=== PATIENT | female | born 1990 | race Caucasian/White ===

== ENCOUNTER → 2021-06-30 | Outpatient (CLI) | payer OTHER ==
[~2021-06-30] MED LIST: CATHETER FLUSH 10 ML SYR IV PRN; HOLD METFORMIN - RECEIVED CONTRAST 20 ML VIAL IV SCH; IOHEXOL 350 MG/ML 100 ML (OMNIPAQUE 350) VIAL IV ONE; NS 100 ML (IVPB) BAG IV ONE
--- NOTE | 2021-06-30 18:14 | Diagnostic Imaging Report ---
PROCEDURE: CT neck soft tissue with contrast. TECHNIQUE: Multiple contiguous axial images were obtained through the neck after the administration of contrast. Auto Exposure Controls were utilized during the CT exam to meet ALARA standards for radiation dose reduction. INDICATION: Globus sensation. COMPARISON: No prior studies are available for comparison. FINDINGS: Visualized intracranial structures are unremarkable. Posterior nasopharynx and oropharynx are unremarkable. Parapharyngeal fat planes are preserved. Epiglottis and larynx are unremarkable. A small nodule along the posterior margin of the right lower pole of the thyroid is again noted and described on ultrasound. Normal-sized lymph nodes in the posterior cervical and jugulodigastric regions are noted. Submandibular and parotid glands appear to be symmetric. No fluid collection or mass is seen. IMPRESSION: Unremarkable CT soft tissue neck study. Dictated by: Dictated on workstation # [id number]
--- NOTE | 2021-06-30 18:18 | Diagnostic Imaging Report ---
PROCEDURE: US Thyroid. TECHNIQUE: Multiple real-time grayscale images were obtained of the thyroid in various projections. INDICATION: Right thyroid nodule, follow-up. CORRELATION is made with outside ultrasound of the thyroid from [facility] from 09/10/2020. Right lobe of the thyroid measures 5.2 x 2.0 x 1.3 cm. The left lobe measures 4.1 x 1.4 x 1.5 cm. Isthmus is 4 mm in thickness. Both lobes are fairly homogeneous in echotexture. There is a hypoechoic nodule along the posterior margin of the lower pole of the right lobe. This may be extrathyroidal and perhaps parathyroid tissue. The nodule appears to be similar in size to outside exam. Parathyroid adenoma cannot be excluded. Previously noted colloid cysts are no longer visualized. IMPRESSION: Hypoechoic solid nodule along the posterior margin of the lower pole right lobe of the thyroid. It is uncertain if this is a true thyroid nodule versus extrathyroidal and perhaps parathyroid in origin. This appears similar to outside study from [facility]. If there is concern for parathyroid adenoma, nuclear medicine parathyroid scan could be performed. Dictated by: Dictated on workstation # [id number]
== END ==
LOC: RAD 07:45
PROVIDERS: ATTEND Otolaryngology Otolaryngology/Facial Plastic Surgery
DX: E04.1 Nontoxic single thyroid nodule (principal); F45.8 Other somatoform disorders
CPT/HCPCS: 70491; 76536

== ENCOUNTER → 2021-07-03 | Outpatient (CLI) | payer OTHER ==
[2021-07-03 11:49] LABS: CALCIUM 9.5 MG/DL (8.5-10.1)
[2021-07-03 12:16] LABS: FREE T4 (FREE THYROXINE) 0.91 NG/DL (0.70-1.48)
== END ==
LOC: LAB 11:09
PROVIDERS: ATTEND Otolaryngology Otolaryngology/Facial Plastic Surgery
DX: E04.1 Nontoxic single thyroid nodule (principal)
CPT/HCPCS: 36415; 82310; 83970; 84439; 84443

== ENCOUNTER → 2021-10-28 | Outpatient (CLI) | payer OTHER | LOC: LABNPT 08:28 | PROVIDERS: ATTEND Internal Medicine Cardiovascular Disease | DX: Z20.822 Contact with and (suspected) exposure to COVID-19 (principal) | CPT/HCPCS: 87636 ==

== ENCOUNTER → 2022-07-05 | Outpatient (CLI) | payer OTHER ==
--- NOTE | 2022-07-05 15:41 | Diagnostic Imaging Report ---
PROCEDURE: US Thyroid. TECHNIQUE: Multiple Real-time grayscale images were obtained of the thyroid in various projections. INDICATION: Enlarged thyroid. FINDINGS: The right lobe measures 5.4 x 1.6 x 1.3 cm. The left lobe measures 4.3 x 1 x 1.3 cm. There is a heterogeneous slightly hypoechoic nodule along the very inferior portion of the right lobe measuring 1.1 x 0.8 cm. There is mild hypervascularity noted of the thyroid. IMPRESSION: Mild thyromegaly. Solid nodule inferiorly in the right lobe is considered mildly suspicious. TI-RADS 3. Sonographic surveillance is recommended. Dictated by: Dictated on workstation # [id number]
== END ==
LOC: RAD 13:46
PROVIDERS: ATTEND Otolaryngology Otolaryngology/Facial Plastic Surgery
DX: E04.1 Nontoxic single thyroid nodule (principal)
CPT/HCPCS: 76536

== ENCOUNTER 2022-11-09 05:38 | Outpatient (CLI) | payer OTHER ==
[~2022-11-09] VITALS: Ht 160 cm; Wt 63.5 kg
[2022-11-10] MEDS ORDERED: SUCR1TAB PO (14:04)
== END 2022-11-10 14:48 ==
LOC: PREOP 05:38
PROVIDERS: ATTEND Surgery
DX: Z01.818 Encounter for other preprocedural examination (principal); R13.10 Dysphagia, unspecified

== ENCOUNTER 2022-11-16 12:34 | Day surgery (SDC) | payer OTHER ==
[~2022-11-16] VITALS: Ht 160 cm; Wt 63.5 kg
[~2022-11-16 12:34] MED LIST changes: -CATHETER FLUSH 10 ML SYR IV PRN; -HOLD METFORMIN - RECEIVED CONTRAST 20 ML VIAL IV SCH; -IOHEXOL 350 MG/ML 100 ML (OMNIPAQUE 350) VIAL IV ONE; -NS 100 ML (IVPB) BAG IV ONE; +SUCR1TAB PO
[2022-11-16] MEDS ORDERED: LACTATED RINGERS 1,000 ML IV STA (12:50)
[2022-11-16 13:00] VITALS: BP 118/73
[2022-11-16] MEDS ORDERED: HURRICAINE EXT TUBE (BENZOCAINE) XX PRN (13:00)
[2022-11-16] MEDS ORDERED: MIDAZOLAM 2 MG/2 ML (VERSED) VIAL ONE (13:57)
[2022-11-16] MEDS ORDERED: PROPOFOL INJECTION 50 ML IV ONE (13:57)
[2022-11-16] MEDS ORDERED: HURRICAINE EXT TUBE (BENZOCAINE) ONE (13:59)
[2022-11-16] MEDS ORDERED: LACTATED RINGERS 1,000 ML IV ONE (13:59)
--- NOTE | 2022-11-16 14:17 | Discharge Inst-Simple/Standard ---
Discharge Inst-Standard Patient Instructions/Follow Up Plan of Care/Instructions/FU: Please follow-up in 2 weeks at the outpatient clinic with Dr. Shirley Activity as Tolerated: Yes Discharge Diet: Regular Diet RICCARDO SHIRLEY DO Nov 16, 2022 14:17
[2022-11-16 14:20] VITALS: BP 108/56
[2022-11-16 14:25] VITALS: BP 108/62
--- NOTE | 2022-11-16 14:36 | Anesthesia-General Post-Op ---
MAC Patient Condition Mental Status/LOC: Same as Preop Cardiovascular: Satisfactory Nausea/Vomiting: Absent Respiratory: Satisfactory Pain: Controlled Complications: Absent Post Op Complications Complications None Follow Up Care/Instructions Patient Instructions None needed. Anesthesiology Discharge Order Discharge Order Patient is doing well, no complaints, stable vital signs, no apparent adverse anesthesia problems. No complications reported per nursing. MARTINE LUCAS CRNA Nov 16, 2022 14:36
[2022-11-16 14:40] VITALS: BP 116/76
[2022-11-16 14:50] VITALS: BP 116/76
--- NOTE | 2022-11-17 01:36 | OPERATIVE REPORT ---
DATE OF SERVICE: 11/16/2022 PREOPERATIVE DIAGNOSIS: Dysphagia. POSTOPERATIVE DIAGNOSIS: Normal EGD. SURGEON: Riccardo Shirley DO ANESTHESIA: Per FLEXOGRAPHIC PRESS HELPER. ESTIMATED BLOOD LOSS: None. COMPLICATIONS: None. : EGD with biopsies. DESCRIPTION OF PROCEDURE: The patient was taken to the endoscopy suite, placed in the left lateral recumbent position. Timeout was performed. Scope was inserted in the mouth, down the esophagus, stomach and duodenum without difficulty. No polyps, masses or ulcerations within the duodenum. Scope was then slowly retracted back. No polyps, masses or ulcerations within the antrum or a biopsy of the antrum was obtained. Scope was retroflexed noting no other pathology. Scope was returned to its normal position and slowly withdrawn to the distal esophagus, biopsy of the GE junction was obtained. No polyps, masses or ulcerations. Scope was slowly retracted back until completely removed, noting no other pathology. The patient tolerated the procedure well with no complications. She was taken to recovery room in stable condition. RECOMMENDATIONS: The patient will continue on current medications. Await biopsy results. Further recommendations pending biopsy results. Job ID: [id number] DocumentID: [id number] Dictated Date: 11/16/2022 14:19:48 Band Straightener Date: 11/17/2022 01:34:00 Dictated By: RICCARDO SHIRLEY DO
== END 2022-11-16 14:50 | disposition home or self-care (01) ==
LOC: ENDO 12:34
PROVIDERS: ATTEND Surgery
DX: K31.89 Other diseases of stomach and duodenum (principal)
CPT/HCPCS: 84703; 88305